=== PATIENT | female | born 1955 | race Caucasian/White ===

== ENCOUNTER 2019-02-01 06:51 | Day surgery (SDC) | payer OTHER ==
[~2019-02-01 06:51] MED LIST: COZAAR100 MG PO; FOSAMAX70 MG PO; HYDROCHLOROTHIA50 MG PO; LACTULOSE10 GM/152 PO; MAXALT MLT10 MG PO; NIFEDIPINE ER30 MG PO; NORVASC5 MG PO; SIMVASTATIN40 MG PO; ZOLOFT50 MG PO
== END 2019-02-01 16:45 | disposition home or self-care (01) ==
LOC: CIR.AMB 06:51
DX: K64.8 Other hemorrhoids (principal); K64.4 Residual hemorrhoidal skin tags

== ENCOUNTER 2019-11-13 11:04 | Emergency (ER) | payer OTHER ==
[~2019-11-13] VITALS: Ht 162.6 cm; Wt 59.9 kg
== END 2019-11-13 12:38 | disposition home or self-care (01) ==
LOC: ER 11:04
DX: N81.11 Cystocele, midline (principal)